=== PATIENT | female | born 1970 | race Caucasian/White ===

== ENCOUNTER → 2016-11-05 | Outpatient (CLI) | payer BC ==
[~2016-11-05] MED LIST: CALTRATE 600600 MG PO; CENTRUM1 TAB PO; LEVOTHYROXINE PO; LOW DOSE ASPIRI81 MG PO; MICARDIS 40MG40 MG PO; MICARDIS40 MG PO; MYLANTA MAXIMU355 ML PO; NATURAL E400 IU PO; POLYSPORIN OINT30 GM TP; PROTONIX 40MG T40 MG PO; PROTONIX40 MG PO; ROLAIDS220 M1 PO; SYNTHROID 0.0.025 MG PO; VITAMIN C500 MG PO
== END ==
LOC: COL.RAD 10-31 13:30
DX: R10.12 Left upper quadrant pain (principal); R10.32 Left lower quadrant pain

== ENCOUNTER → 2018-08-27 | Outpatient (CLI) | payer BC | LOC: COL.RAD 07:22 | DX: D35.02 Benign neoplasm of left adrenal gland (principal); D18.03 Hemangioma of intra-abdominal structures; Z90.49 Acquired absence of other specified parts of digestive tract; Z90.710 Acquired absence of both cervix and uterus | CPT/HCPCS: Q9967 ==

== ENCOUNTER → 2019-09-07 | Outpatient (CLI) | payer BC | LOC: COL.RAD 15:11 | DX: M51.26 Other intervertebral disc displacement, lumbar region (principal); M51.36 Other intervertebral disc degeneration, lumbar region; Z98.890 Other specified postprocedural states ==